=== PATIENT | female | born 1980 | race Asian ===

== ENCOUNTER 2020-07-14 15:43 | Emergency (ER) | payer OTHER ==
[~2020-07-14] VITALS: Ht 162.6 cm; Wt 81.6 kg
[2020-07-14] MEDS ORDERED: HYDROCODONE/APAP 10MG-325MG TAB PO ONE (16:15)
[2020-07-14] MEDS ORDERED: ULTRAM 50MG50 MG PO (17:01)
== END 2020-07-14 17:15 | disposition home or self-care (01) ==
LOC: ER 16:07
DX: M25.561 Pain in right knee (principal); S83.91XA Sprain of unspecified site of right knee, initial encounter; X50.1XXA Overexertion from prolonged static or awkward postures, initial encounter; Y92.003 Bedroom of unspecified non-institutional (private) residence as the place of occurrence of the external cause; F41.9 Anxiety disorder, unspecified
CPT/HCPCS: 99283